=== PATIENT | male | born 1955 | race Hispanic/Latino ===

== ENCOUNTER 2017-04-29 11:16 | Emergency (ER) | payer SELFPAY ==
[2017-04-29 11:17] VITALS: BMI 14.6
[2017-04-29 11:29] VITALS: TEMP 97.9; O2SAT 98
--- NOTE | 2017-04-29 12:49 | C.PDOC ---
History Of Present Illness 62 y/o male presents to the ED complaining of difficulty swallowing for the past month. Reports history of throat cancer, treated with radiation and chemotherapy, and has been in remission for 1 year. Patient states he feels like the cancer is back. He reports he is still able to eat normally. Also noticed increasing voice hoarseness. Patient was followed by Dr. Soto but states he has not had recent follow up and when he tried to make an appointment , was told Dr. Soto no longer comes here. Otherwise he denies any throat swelling, throat pain, nausea, vomiting, weakness, or loss of appetite. On arrival, patient is coughing. Oncologist: Crow Soto Time Seen by Provider: 04/29/17 12:08 Chief Complaint (Nursing): ENT Problem History Per: Patient History/Exam Limitations: None Onset/Duration Of Symptoms: Days (x 1 month) Current Symptoms Are (Timing): Still Present Past Medical History Reviewed: Historical Data, Nursing Documentation, Vital Signs Vital Signs: Last Vital Signs Temp 97.9 F 04/29/17 11:26 Pulse 86 04/29/17 13:54 Resp 16 04/29/17 13:54 BP 118/70 04/29/17 13:54 Pulse Ox 98 04/29/17 13:54 - Medical History PMH: COPD, Malignancy (throat CA), Pneumonia Denies: Diabetes, Hepatitis, HIV, HTN, Chronic Kidney Disease, Seizures - [facility] Procedures ALCOHOL DETOXIFICATION (08/07/14) ASPIRAT NEEDLE PERCUTAN BX OF PANCREAS (06/21/14) CENTRAL VENOUS CATHETER PLACEMENT WITH GUIDANCE (10/05/12) CLOSED ENDOSCOPIC BIOPSY OF LUNG (10/05/12) CLOSED [ENDOSCOPIC] BIOPSY OF LARYNX (06/21/14) CONTINUOUS INVASIVE MECHANICAL VENTILATION =/>96 CONSEC HRS (10/05/12) ENDOSCOPIC SPHINCTEROTOMY AND PAPILLOTOMY (06/21/14) ENTERAL INFUSION OF CONCENTRATED NUT. SUBSTANCES (10/05/12) ESOPHAGOGASTRODUODENOSCOPY [EGD] W/CLOSED BIOPSY (07/04/14) INSERT ENDOTRACHEAL TUBE (10/05/12) INSERT INTERCOSTAL CATH (10/05/12) PERCUTANEOUS [ENDOSCOPIC] GASTROSTOMY [PEG] (07/04/14) THORACENTESIS (10/05/12) VACCINATION NEC (10/05/12) Family History: States: Unknown Family Hx - Social History Hx Tobacco Use: Yes Hx Alcohol Use: Yes ("2 beers") Hx Substance Use: Yes (HX OF HEROINE ABUSE) - Immunization History Hx Tetanus Toxoid Vaccination: No Hx Influenza Vaccination: No Hx Pneumococcal Vaccination: No Review Of Systems Except As Marked, All Systems Reviewed And Found Negative. Constitutional: Negative for: Fever, Chills, Weakness ENT: Positive for: Other (difficulty swallowing, hoarse voice). Negative for: Throat Pain, Throat Swelling Respiratory: Positive for: Cough. Negative for: Shortness of Breath Gastrointestinal: Negative for: Nausea, Vomiting, Abdominal Pain, Other (loss of appetite) Physical Exam - Physical Exam Appears: No Acute Distress, Other (Moderately thin appearing) Skin: Normal Color, Warm, Dry Head: Atraumatic, Normacephalic Eye(s): bilateral: Normal Inspection, PERRL, EOMI Nose: Normal Oral Mucosa: Moist Teeth: Edentulous (partially) Throat: Normal, No Erythema, No Exudate Neck: Normal ROM, Trachea Midline, Supple Lymphatic: No Adenopathy Chest: Symmetrical Cardiovascular: Rhythm Regular, No Murmur Respiratory: Normal Breath Sounds, No Rales, No Rhonchi, No Wheezing, Other ( Cough noted on exam) Gastrointestinal/Abdominal: Soft, No Tenderness, No Distention Back: Normal Inspection, No CVA Tenderness, No Vertebral Tenderness Extremity: Bilateral: Atraumatic, Normal Color And Temperature, Normal ROM Neurological/Psych: Oriented x3, Normal Speech ED Course And Treatment O2 Sat by Pulse Oximetry: 98 (RA) Pulse Ox Interpretation: Normal Medical Decision Making Medical Decision Making: Time: 12:39 Initial Plan: * Chest x-ray 2 views Patient counseled regarding the importance of follow up with oncologist or ENT. Call placed to Dr. Soto with no success. The patient has normal airways and no shortness of breath. Tolerating PO well. CXR is normal. Disposition - Disposition Referrals: [facility] [Outside] Disposition: HOME/ ROUTINE Disposition Time: 13:35 Condition: GOOD Additional Instructions: Follow up with the medical doctor within 1-2 days. Return if worsened. Prescriptions: Lactose-Reduced Food [Ensure High Protein-Muscle] 237 ml PO BID #10 liquid Instructions: Throat Cancer Forms: [facility] (Portuguese) - Clinical Impression Clinical Impression: Throat pain in adult - PA / IMMIGRATION LAW SPECIALIST / Resident Statement MD/DO has reviewed & agrees with the documentation as recorded. - Scribe Statement The provider has reviewed the documentation as recorded by the Scribe (Nat Ochoa) All medical record entries made by the Scribe were at my direction and personally dictated by me. I have reviewed the chart and agree that the record accurately reflects my personal performance of the history, physical exam, medical decision making, and the department course for this patient. I have also personally directed, reviewed, and agree with the discharge instructions and disposition.
[2017-04-29 13:55] VITALS: BP 118/70; PULSE 86; RESP 16
--- NOTE | 2017-04-29 14:58 | RAD ---
HISTORY: cough COMPARISON: 01/24/2015 TECHNIQUE: Chest PA and lateral FINDINGS: LUNGS: Right middle lobe atelectasis best seen on the lateral view. This represents a chronic finding. PLEURA: No significant pleural effusion identified. No pneumothorax apparent. CARDIOVASCULAR: Normal. OSSEOUS STRUCTURES: No significant abnormalities. VISUALIZED UPPER ABDOMEN: Normal. OTHER FINDINGS: None. IMPRESSION: No active pulmonary disease. Stable collapse right middle lobe.
== END 2017-04-29 14:10 | disposition home or self-care (01) ==
LOC: C.ER 11:16
DX: R07.0 Pain in throat (principal)